=== PATIENT | male | born 1990 | race African-American/Black ===

== ENCOUNTER 2020-11-22 14:12 | Emergency (ER) | payer SELFPAY ==
[2020-11-22 14:13] VITALS: BP 117/75; PULSE 83; RESP 16; TEMP 36.2; O2SAT 100; BMI 20.9
--- NOTE | 2020-11-22 14:31 | RAD_ITS ---
STUDY: X-RAY - RIGHT HAND REASON FOR EXAM: Male, 30 years old. Injury/Pain limited range of motion, dropped weight on hand TECHNIQUE: 3 view(s) of the hand. COMPARISON: None. FINDINGS: Normal radiocarpal articulation. Normal distal radioulnar joint. Normal visualized carpal bones. Normal carpal articulations Normal carpometacarpal articulation of the thumb. Normal second through fifth carpometacarpal joints. Normal metacarpi. Normal metacarpophalangeal joint of the thumb. Normal interphalangeal joint of the thumb. Normal proximal and distal phalanges of the thumb. Normal metacarpophalangeal joints of the second through fifth fingers. Normal proximal and distal interphalangeal joints of the second through fifth fingers. Normal phalanges of the second through fifth fingers. The soft tissue structures are unremarkable. RAD/Hand Min 3 Views IMPRESSION: Normal x-ray examination of the hand. Electronically Signed: Frances Aldana MD at 15:24 EDT Tel , Service support ,
--- NOTE | 2020-11-22 15:12 | ED.VISSUMM ---
- ER Visit Summary Date of Service: 11/22/20 Chief Complaint: Injury to right hand History of Present Illness: The patient is a 30 M who is visiting from [facility]. He reports that 2 days ago he dropped a weight on his right hand. States that he had x-rays, but did not wait to have a splint placed. States that since that time is a sharp, throbbing pain is 10 of 10 at worst 9-10 currently. Is worsened by movement. Is minimally relieved by Tylenol and ibuprofen. He denies any paresthesias distally. He is left-hand dominant. Physical Examination: Vitals: Stable. Afebrile. General: Well-nourished and well-developed. Head: Normocephalic atraumatic. Neck: Supple, no lymphadenopathy. No JVD. Nontender. Cardiovascular: Regular rate and rhythm. No murmurs. Respiratory: No respiratory distress. Clear to auscultation bilaterally. Abdominal: Soft, nontender, nondistended, normal bowel sounds. No guarding, rebound, or peritoneal signs. Back: Nontender. Extremities: Soft tissue swelling and severe tenderness palpation over the dorsum of his metacarpals on the right. He is neurovascular intact distal to this. Skin: Normal color, no rash. Neurologic: Alert and oriented ?3. Cranial nerves II through XII are intact. Normal strength and sensation. Psych: Normal affect. Test Results: X-ray shows a spiral fourth metacarpal fracture. Emergency Department Course and Treatment: Patient drove here and was given ibuprofen p.o. He was placed in an Ortho-Glass volar splint. Treatment Plan: Patient reports that he already has referral to an orthopedic surgeon in [place] and is to leave tomorrow. He will be discharged with Percocet. Instructed follow-up with the orthopedic surgeon in 1 week for another exam. I had a prolonged discussion to him that this likely will need to have surgery. Disposition: To home in improved and stable condition. Impression: 1. Right fourth metacarpal fracture. 2. Ortho-Glass volar splint, fabricated. This note was generated with [employer] dictation software. It may contain incorrect words, spelling, and punctuation that were not noted in review of the chart prior to signing ED Disposition - Plan for ED Patient: Instructions: ED Closed Hand Fracture (Adult) Prescriptions: Oxycodone HCl/Acetaminophen [Percocet 5/325] 1 tab PO Q6H PRN PRN 3 Days #12 tab PRN Reason: Pain Prescription Printed Additional Instructions: Follow-up with a hand surgeon within 1 week for another exam.
[2020-11-22] MEDS: Ibuprofen 600 MG Tablet PO (15:26)
[2020-11-22 15:46] VITALS: RESP 17
== END 2020-11-22 15:47 | disposition home or self-care (01) ==
LOC: ED 15:08
PROVIDERS: Emergency Provider Emergency Medicine
DX: S62.304A Unspecified fracture of fourth metacarpal bone, right hand, initial encounter for closed fracture (principal); W22.8XXA Striking against or struck by other objects, initial encounter; Y93.9 Activity, unspecified; Y92.9 Unspecified place or not applicable; Y99.9 Unspecified external cause status; J45.909 Unspecified asthma, uncomplicated
CPT/HCPCS: 29125; 73130; 99283